=== PATIENT | female | born 1990 | race Two or more races ===

== ENCOUNTER 2018-09-18 10:33 | Emergency (ER) | payer BC ==
--- NOTE | 2018-09-18 11:14 | EDM.PDOC ---
ED HPI GENERAL MEDICAL PROBLEM - General Chief Complaint: ENT Problem Stated Complaint: SORE THROAT Time Seen by Provider: 09/18/18 11:14 Source of Information: Reports: Patient, RN Notes Reviewed History Limitations: Reports: No Limitations - History of Present Illness INITIAL COMMENTS - FREE TEXT/NARRATIVE: Patient is a 27 year old female who presents to the ED for the evaluation of a sore throat. She states that this has been going on for around 3 days, the last 2 days she states it has been pretty mild, and this morning it has worsened. She states that this is a sharp, stabby pain. She is able to tolerate oral fluids and food okay. She has not taken any OTC medications for pain relief. She states that her pain is around a 2-3/10. She also notes a history of multiple strep throat infections as a child. She denies feeling unwell otherwise , nausea/vomiting/diarrhea, chest pain, shortness of breath or other URI symptoms. Treatments [employer]ICATOR: Reports: Other (see below) Other Treatments [employer]RE [employer]OTE[employer] F[employer]RICATOR: none Throat Pain Score (Numeric/FACES): 3 - Related Data Allergies Allergy/AdvReac Type Severity Reaction Status Date / Time No Known Allergies Allergy Verified 09/18/18 11:03 Home Meds: Home Meds . [No Known Home Meds] 09/18/18 [History] Past Medical History - Past Surgical History HEENT Surgical History: Reports: Oral Surgery Social & Family History - Tobacco Use Smoking Status *Q: Current Every Day Smoker Years of Tobacco use: 10 Packs/Tins Daily: 1 - Caffeine Use Caffeine Use: Reports: Coffee, Tea - Recreational Drug Use Recreational Drug Type: Reports: Marijuana/Hashish ED ROS ENT - Review of Systems Review Of Systems: See Below Constitutional: Denies: Fever, Chills HEENT: Reports: Throat Pain. Denies: Ear Pain, Rhinitis, Sinus Problem, Throat Swelling Respiratory: Reports: No Symptoms Cardiovascular: Reports: No Symptoms Endocrine: Reports: No Symptoms GI/Abdominal: Denies: Diarrhea, Nausea, Vomiting : Reports: No Symptoms Musculoskeletal: Reports: No Symptoms Skin: Reports: No Symptoms Neurological: Reports: No Symptoms Psychiatric: Reports: No Symptoms Hematologic/Lymphatic: Reports: No Symptoms Immunologic: Reports: No Symptoms ED EXAM, ENT - Physical Exam Exam: See Below Exam Limited By: No Limitations General Appearance: Alert, WD/WN, No Apparent Distress Eye Exam: Bilateral Eye: EOMI, Normal Inspection, PERRL Ears: Normal External Exam, Normal Canal, Hearing Grossly Normal, Normal TMs Nose: Normal Inspection, No Blood, Injected Turbinates (right sided) Mouth/Throat: Normal Inspection, Normal Lips, Pharyngeal Erythema, Throat Pain. No: Muffled Voice, Peritonsillar Mass, Throat Swelling, Tonsillar Swelling Head: Atraumatic, Normocephalic Neck: Normal Inspection, Supple, Non-Tender, Full Range of Motion. No: Lymphadenopathy (L), Lymphadenopathy (R) Respiratory/Chest: No Respiratory Distress, Lungs Clear, Normal Breath Sounds, No Accessory Muscle Use, Chest Non-Tender Cardiovascular: Normal Peripheral Pulses, Regular Rate, Rhythm, No Murmur Neurological: Alert, Oriented, Normal Cognition, No Motor/Sensory Deficits Psychiatric: Normal Affect, Normal Mood Skin: Warm, Dry, Intact, Normal Color, No Rash Course - Vital Signs Last Recorded V/S: Last Vital Signs Temp 98.0 F 09/18/18 11:06 Pulse 85 09/18/18 11:06 Resp 20 09/18/18 11:06 BP 107/75 09/18/18 11:06 Pulse Ox 99 09/18/18 11:06 - Orders/Labs/Meds Orders: Active Orders 24 hr Category Date Time Status CULTURE STREP A CONFIRMATION [] Stat Lab 09/18/18 12:01 Results STREP SCRN A RAPID W CULT CONF [] Stat Lab 09/18/18 12:01 Ordered - Re-Assessments/Exams Free Text/Narrative Re-Assessment/Exam: 09/18/18 11:45 Pt presents to the ED for the evaluation of a sore throat. Have ordered strep screen to evaluate for that, she denied any pain medications for her sore throat at this time. Screen is still pending. 09/18/18 12:51 Rapid strep screen is negative. Will be sent for culture and she will be called with results. Will recommend OTC pain relief medications for throat pain. Departure - Departure Time of Disposition: 12:53 Disposition: Home, Self-Care 01 Condition: Fair Clinical Impression: Sore throat - Discharge Information *PRESCRIPTION DRUG MONITORING PROGRAM REVIEWED*: No *COPY OF PRESCRIPTION DRUG MONITORING REPORT IN PATIENT DANILO: No Instructions: Sore Throat, [id number] Referrals: PCP,None [Primary Care Provider] - Forms: ED Department Discharge Additional Instructions: You have been evaluated in the ED for your sore throat. Your rapid strep screen was negative, however this will be sent for culture for conformation. You will be notified of the results if your need further treatment with antibiotics. Recommend tylenol/ibuprofen for throat pain, and other OTC medications for throat pain. Numbing lozenges may help, as well as salt water gargles. Please return to ED if your symptoms should change or worsen. - My Orders Last 24 Hours: My Active Orders 09/18/18 12:01 CULTURE STREP A CONFIRMATION [RM] Stat STREP SCRN A RAPID W CULT CONF [RM] Stat - Assessment/Plan Last 24 Hours: My Active Orders 09/18/18 12:01 CULTURE STREP A CONFIRMATION [RM] Stat STREP SCRN A RAPID W CULT CONF [] Stat
== END 2018-09-18 13:09 | disposition home or self-care (01) ==
LOC: JD.ED 10:33
DX: J02.9 Acute pharyngitis, unspecified (principal); F17.210 Nicotine dependence, cigarettes, uncomplicated
CPT/HCPCS: 87081; 87430; 99282; 99283